=== PATIENT | male | born 1975 | race Caucasian/White ===

== ENCOUNTER 2017-06-01 07:35 | Inpatient (IN) | payer MEDICARE, OTHER ==
[~2017-06-01] VITALS: Ht 182.9 cm; Wt 118.0 kg
[~2017-06-01 07:35] MED LIST: CARI250T PO; IBUP-1221 PO; LISI-170 PO; OXYC-302 PO
[2017-06-01] MEDS ORDERED: morphine SULFATE 10 MG/ML, 1ML ONE (08:20)
[2017-06-01] MEDS ORDERED: ONDANSETRON 2MG/ML, 2ML ONE (08:20)
[2017-06-01] MEDS: MORPHINE SULFATE 4 MG/ML, 1ML IVPush PRN ×2 (08:36→08:58)
[2017-06-01] MEDS ORDERED: OXYC20TA2 PO (08:38)
[2017-06-01 08:57] LABS: HEMATOCRIT 46.3 % (39.2-51.8); HEMOGLOBIN 15.9 g/dL (13.7-18.0); WHITE BLOOD COUNT 18.7 x10^3/uL (3.4-10)
[2017-06-01] MEDS ORDERED: METRONIDAZOLE PMX 500MG/100ML 100 ML IVPB ONE (09:00)
[2017-06-01] MEDS ORDERED: ONDANSETRON 2MG/ML, 2ML IVPush ONE (09:00)
[2017-06-01] MEDS ORDERED: SODIUM CHLORIDE 0.9% 1,000ML IVBOLUS ONE ×2 (09:00→12:00)
[2017-06-01] MEDS ORDERED: PIPERACILLIN/TAZO/PMX 3.375GM 50 ML ONE (09:03)
[2017-06-01 09:06] LABS: BLOOD UREA NITROGEN 8 mg/dL (7-18)
[2017-06-01] MEDS ORDERED: HYDROmorphone 2 MG/ML, 1ML ONE ×3 (09:16→12:12)
[2017-06-01] MEDS: HYDROmorphone 1 MG/ML, 1ML IVPush PRN ×2 (09:18→10:55)
[2017-06-01] MEDS ORDERED: SODIUM CHLORIDE FLUSH 10ML SYR IVF ONE (09:30)
[2017-06-01] MEDS ORDERED: OMNIPAQUE 350 MG/ML, 100ML BOTTLE ONE (09:34)
[2017-06-01] MEDS ORDERED: METRONIDAZOLE PMX 500MG/100ML 100 ML ONE (09:44)
[2017-06-01] MEDS ORDERED: PIPERACILLIN/TAZO/PMX 3.375GM 50 ML IVPB ONE (10:00)
[2017-06-01] MEDS ORDERED: LIDOCAINE GEL 2%, 5ML ONE (11:17)
[2017-06-01] MEDS ORDERED: HYDROmorphone 1 MG/ML, 1ML IVPush PRN (12:00)
[2017-06-01] MEDS ORDERED: SODIUM CHLORIDE 0.9% 1,000 ML IV ONE (12:18)
[2017-06-01] MEDS ORDERED: EPINEPHRINE 1 MG/ML, 1ML ONE (12:21)
[2017-06-01] MEDS ORDERED: BUPIVACAINE/PF 0.5% ONE (12:21)
[2017-06-01] MEDS ORDERED: FENTANYL PF 100 MCG/2ML ONE (12:24)
[2017-06-01] MEDS ORDERED: MIDAZOLAM 1 MG/ML, 2ML ONE (12:25)
[2017-06-01] MEDS ORDERED: ACETAMINOPHEN 325 MG TABLET PO PRN ×2 (12:30→14:00)
[2017-06-01] MEDS ORDERED: MEPERIDINE/PF 25MG/0.5ML IVPush PRN (12:30)
[2017-06-01] MEDS ORDERED: PROMETHAZINE 25 MG/ML, 1ML IV PRN (12:30)
[2017-06-01] MEDS ORDERED: OXYcodone 5 MG/5 ML ORAL.SOL UDC PO PRN (12:30)
[2017-06-01] MEDS ORDERED: ONDANSETRON 2MG/ML, 2ML IVPush PRN ×2 (12:30→14:00)
[2017-06-01] MEDS ORDERED: FENTANYL PF 100 MCG/2ML IV PRN (12:30)
[2017-06-01] MEDS ORDERED: HYDROmorphone 1 MG/ML, 1ML IV PRN (12:30)
[2017-06-01] MEDS ORDERED: LABETALOL 5MG/ML, 20ML IV PRN (12:30)
[2017-06-01] MEDS ORDERED: SODIUM CHLORIDE FLUSH 10ML SYR IVF PRN (12:30)
[2017-06-01] MEDS ORDERED: hydrALAzine 20 MG/ML, 1ML IV PRN (12:30)
[2017-06-01] MEDS ORDERED: SUCCINYLCHOLINE 20 MG/ML, 10ML ONE (12:47)
[2017-06-01] MEDS ORDERED: PROPOFOL 10 MG/ML, 20ML ONE (12:47)
[2017-06-01] MEDS ORDERED: ROCURONIUM 10 MG/ML ONE (12:47)
[2017-06-01] MEDS ORDERED: ENALAPRILAT 1.25 MG/ML, 2ML IVPush PRN (14:00)
[2017-06-01] MEDS ORDERED: LABETALOL 5MG/ML, 20ML IVPush PRN (14:00)
[2017-06-01] MEDS ORDERED: ACETAMINOPHEN 325 MG TABLET ONE (14:36)
[2017-06-01] MEDS ORDERED: ACETAMINOPHEN 650 MG/20.3 ML UDC ONE (14:36)
[2017-06-01] MEDS ORDERED: OXYcodone 5 MG/5 ML ORAL.SOL UDC ONE (14:36)
[2017-06-01] MEDS: morphine SULFATE 10 MG/ML, 1ML IVPush PRN (16:40)
[2017-06-01] MEDS: PIPERACILLIN/TAZO/PMX 3.375GM 50 ML IV SCH ×2 (16:41→22:43)
[2017-06-01] MEDS: D5%-0.45NACL+KCL 20MEQ 1,000 ML IV SCH ×2 (16:41→23:55)
[2017-06-01] MEDS ORDERED: HYDROmorphone 1 MG/ML, 1ML ONE (18:34)
[2017-06-01 19:06] VITALS: BP 127/80
[2017-06-02 00:20] VITALS: BP 126/76
[2017-06-02] MEDS: morphine SULFATE 10 MG/ML, 1ML IVPush PRN ×5 (03:02→22:45)
[2017-06-02 03:22] VITALS: BP 136/64
[2017-06-02] MEDS: PIPERACILLIN/TAZO/PMX 3.375GM 50 ML IV SCH ×4 (04:33→22:17)
[2017-06-02 05:37] LABS: HEMATOCRIT 44.2 % (39.2-51.8); HEMOGLOBIN 15.2 g/dL (13.7-18.0); WHITE BLOOD COUNT 12.6 x10^3/uL (3.4-10)
[2017-06-02] MEDS: D5%-0.45NACL+KCL 20MEQ 1,000 ML IV SCH ×3 (06:10→19:25)
[2017-06-02 08:33] VITALS: BP 153/92
[2017-06-02] MEDS: OXYcodone/APAP 7.5/325MG TABLET PO PRN ×2 (09:17→20:12)
[2017-06-02] MEDS: LISINOPRIL 20 MG TABLET PO SCH (09:17)
[2017-06-02] MEDS ORDERED: OMEP20TA62 PO (10:41)
[2017-06-02 13:07] LABS: PATH.CAST-FLAG NOT PRESENT; SPERM-FLAG NOT PRESENT; SRC-FLAG NOT PRESENT; XTAL-FLAG NOT PRESENT; YLC-FLAG NOT PRESENT
[2017-06-02 14:58] VITALS: BP 116/69
[2017-06-02 19:47] VITALS: BP 99/55
[2017-06-02] MEDS: DOCUSATE 100 MG CAPSULE PO SCH (20:12)
[2017-06-03] MEDS: D5%-0.45NACL+KCL 20MEQ 1,000 ML IV SCH ×4 (02:10→21:50)
[2017-06-03 02:53] VITALS: BP 113/71
[2017-06-03] MEDS: morphine SULFATE 10 MG/ML, 1ML IVPush PRN ×5 (04:06→22:54)
[2017-06-03] MEDS: PIPERACILLIN/TAZO/PMX 3.375GM 50 ML IV SCH ×4 (04:10→21:53)
[2017-06-03 05:36] LABS: HEMOGLOBIN 14.9 g/dL (13.7-18.0); WHITE BLOOD COUNT 9.1 x10^3/uL (3.4-10)
[2017-06-03 08:07] VITALS: BP 95/64
[2017-06-03] MEDS: OMEPRAZOLE 20 MG CAPSULE.DR PO SCH (08:33)
[2017-06-03] MEDS: LISINOPRIL 20 MG TABLET PO SCH (08:33)
[2017-06-03] MEDS: DOCUSATE 100 MG CAPSULE PO SCH ×2 (08:33→21:52)
[2017-06-03] MEDS: OXYcodone/APAP 7.5/325MG TABLET PO PRN ×3 (08:59→21:52)
[2017-06-03 13:18] VITALS: BP 126/78
[2017-06-03 20:11] VITALS: BP 136/91
[2017-06-04 02:00] VITALS: BP 116/71
[2017-06-04] MEDS: OXYcodone/APAP 7.5/325MG TABLET PO PRN ×2 (04:03→09:21)
[2017-06-04] MEDS: D5%-0.45NACL+KCL 20MEQ 1,000 ML IV SCH (04:03)
[2017-06-04] MEDS: PIPERACILLIN/TAZO/PMX 3.375GM 50 ML IV SCH ×2 (04:03→10:30)
[2017-06-04] MEDS: morphine SULFATE 10 MG/ML, 1ML IVPush PRN (05:20)
[2017-06-04 06:00] LABS: HEMATOCRIT 45.1 % (39.2-51.8); HEMOGLOBIN 15.5 g/dL (13.7-18.0); WHITE BLOOD COUNT 8.9 x10^3/uL (3.4-10)
[2017-06-04 08:57] VITALS: BP 131/78
[2017-06-04] MEDS: DOCUSATE 100 MG CAPSULE PO SCH (09:21)
[2017-06-04] MEDS: OMEPRAZOLE 20 MG CAPSULE.DR PO SCH (09:21)
[2017-06-04] MEDS: LISINOPRIL 20 MG TABLET PO SCH (09:21)
[2017-06-04] MEDS ORDERED: AMOX1TAB64 PO (11:20)
[2017-06-04] MEDS ORDERED: OXYC5CAP2 PO (11:22)
[2017-06-04] MEDS ORDERED: ACET-1757 PO (11:25)
== END 2017-06-04 11:30 | disposition home or self-care (01) | DRG 853 ==
LOC: ED 08:06 → EDIP 12:18 → 4NOR 15:12 → DCLOUNGE 06-04 11:05
PROVIDERS: ADMIT Surgery; ATTEND Surgery
PROC: 0D9P0ZZ Drainage of Rectum, Open Approach (ICD-10-PCS; principal; 2017-06-01 12:30)
DX: A41.9 Sepsis, unspecified organism (principal); R65.21 Severe sepsis with septic shock; L02.215 Cutaneous abscess of perineum; K61.1 Rectal abscess; F17.210 Nicotine dependence, cigarettes, uncomplicated; I10 Essential (primary) hypertension; K62.89 Other specified diseases of anus and rectum; M43.17 Spondylolisthesis, lumbosacral region; M51.37 Other intervertebral disc degeneration, lumbosacral region
CPT/HCPCS: 36415; 74177; 80048; 81001; 82040; 83605; 84145; 85025; 87040; 87070; 87075; 87076; 87086; 87147; 87205; 96365; 96366; 96368; 96375; 96376; J0171; J1170; J2250; J2405; J2543; J2704; J3010; J3490; Q9967; J0330; J2270; J3480; J7030